=== PATIENT | male | born 2000 | race Hispanic/Latino ===

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

== ENCOUNTER 2021-10-17 15:40 | Emergency (ER) | payer OTHER ==
[~2021-10-17] VITALS: Ht 175.3 cm; Wt 93.0 kg
[2021-10-17] MEDS ORDERED: AUGMENTIN 500-1 EACH PO (17:00)
== END 2021-10-17 17:14 | disposition home or self-care (01) ==
LOC: FSED 15:58
DX: S51.811A Laceration without foreign body of right forearm, initial encounter (principal); W25.XXXA Contact with sharp glass, initial encounter; Y92.008 Other place in unspecified non-institutional (private) residence as the place of occurrence of the external cause
CPT/HCPCS: 99283